=== PATIENT | female | born 1960 | race Caucasian/White ===

== ENCOUNTER 2024-01-15 16:33 | Emergency (ER) | payer MEDICARE, OTHER, SELFPAY ==
[2024-01-15 16:35] VITALS: BP 129/59; BMI 42.6
[2024-01-15 17:36] LABS: COVID-19 Antigen Negative (Negative)
[2024-01-15 17:36] LABS: % Basophils 0.1 % (0-2); % Eosinophils 0.1 % (0-6); % Immature Granulocytes 0.9 % (0-0.5); % Lymphocytes 5.4 % (20.5-51.1); % Monocytes 2.9 % (1.7-9.3); % Neutrophils 90.6 % (42.2-75.2); Absolute Immature Granulocytes 0.1 10^3/uL (0-0.05); Absolute Lymphocytes 0.8 10^3/uL (1.2-3.4); Absolute Monocytes 0.4 10^3/uL (0.1-0.6); Absolute Neutrophils 13.7 10^3/uL (1.4-6.5); Hematocrit 37.3 % (37.0-47.0); Hemoglobin 11.9 g/dL (12.0-16.0); Mean Corp Hgb Conc. 31.9 g/dL (33.0-37.0); Mean Corpuscular Hgb 27.4 pg (27.0-31.0); Mean Corpuscular Volume 85.7 fL (81.0-99.0); Mean Platelet Volume 10.1 fL (7.4-10.4); Nucleated Red Blood Cells % 0 %; Platelet Count 152 10^3/uL (130-400); Red Blood Cell Count 4.35 10^6/uL (4.20-5.40); Red Cell Dist. Width 16.5 % (11.5-14.5); White Blood Cell Count 15.1 10^3/uL (4.8-10.8)
[2024-01-15 17:54] VITALS: BP 104/65
[2024-01-15 18:00] VITALS: BP 94/64
[2024-01-15 18:50] LABS: ALT (SGPT) 28 U/L (0-35); AST (SGOT) 25 U/L (14-36); Albumin 3.5 g/dl (3.5-5.0); Alkaline Phosphatase 70 U/L (38-126); Blood Urea Nitrogen 21 mg/dl (7-17); Calcium 9.4 mg/dl (8.4-10.2); Carbon Dioxide 32 mmol/L (22-30); Chloride 102 mmol/L (98-107); Estimated Creatinine Clearance 74 ml/min; Glucose 142 mg/dl (70-99); Lipase 175 U/L (23-300); Sodium 140 mmol/L (135-145); Total Bilirubin 1.2 mg/dl (0.2-1.3); eGFR > 60.00
[2024-01-15 19:00] VITALS: BP 91/55
[2024-01-15 19:02] LABS: NT-proBNP 3520 pg/ml; Troponin I 0.031 ng/ml
--- NOTE | 2024-01-15 19:17 | ED.GENMED ---
History of Present Illness
General
Chief Complaint: Breathing Problem
Source: patient and spouse
Exam Limitations: none
Time Seen by Provider: 01/15/24 17:31
Nursing documentation reviewed up to this point in time: agreed with
Travel History
Have you had any contact with someone who has COVID-19?: No
Do you have any symptoms of coronavirus? Fever > 100 degrees, chills, cough, shortness of breath, sore throat, loss of taste or smell, muscle aches, or headache?: No
History of Present Illness
History of Present Illness:
63-year-old female with past medical history of lung transplant 2021 at [facility] on the right side, heart disease atrial fibrillation presenting to the emergency department today with concerns of worsening shortness of breath increased oxygen
requirement chest tightness from her nursing facility. Was recently at [facility] a week ago and was discharged. She claims that her pulse ox significant is worse with ambulation as well. Denies specific fevers.
Past History
Past History
ED Past Medical History: Renal failure and Other (Mixed connective tissue disease, liver disease lung disease renal disease); Negative Cancer, CHF, CVA or IDDM
Social History
Tobacco: Non-smoker
Alcohol: None
Drug: None
Personal:
Living: with family
Employment: Not employed
Family History
Family History: Hypertension
Review of Systems
Review of Systems
Allergies reviewed?: Yes
All Other Systems: ROS reviewed and negative except as documented in HPI and ROS
Phy Exam
Physical Exam
Physical Exam:
GENERAL: Alert , in no apparent distress
EYE: pupils equal and reactive
NECK: Supple, no significant adenopathy.
ENT: o/p clr, mmm.
CARDIAC: Regular rate and rhythm .
LUNGS: Clear breath sounds bilaterally, no acute respiratory distress, no wheezes/rales/rhonchi
ABDOMEN: Soft, without focal tenderness, no r/g, no cvat
NEUROLOGICAL: Alert and oriented, no focal neuro deficits
SKIN: Warm and dry, skin intact.
MUSCULOSKELETAL: No edema, well perfused.
PSYCH: Normal and appropriate interaction.
Scores
Heart Failure Risk
Heart Failure Risk Score: Not Applicable
Course
Orders/Labs/Results
Orders:
Orders
01/15/24 16:43
EKG [Electrocardiogram (*1)] Urgent
Reason for Study: Shortness of Breath
EKG- Treatment ONCE
01/15/24 16:49
Chest [CR Chest - 2 Views ] Urgent
Comment:
Reason For Exam: shortness of breath, R lung transplant 2021
01/15/24 16:52
COVID-19 Antigen Urgent
Source: Nasal Swab
Influenza A+B Rapid Molecular Urgent
ANA LAURA Source: Nasal Swab
Specimen Description:
01/15/24 17:25
CBC/With Diff [Complete Blood Count/With Diff] Urgent
01/15/24 18:29
Comprehensive Metabolic Panel Urgent
Comment: REDRAW
Lipase Urgent
Comment: REDRAW
NT-proBNP Urgent
Comment: REDRAW
Troponin I Urgent
Comment: REDRAW
01/15/24 18:48
Cefepime HCl [Maxipime] 2,000 mg IV NOW STA
01/15/24 19:19
Vancomycin [Vancocin] 2,000 mg 0.9% Sodium Chloride 500 ml [Nss] 500 ml IV NOW
Abnormal Lab Results
01/15/24 01/15/24
17:25 18:29
WBC 15.1 H 10^3/uL
(4.8-10.8)
Hgb 11.9 L g/dL
(12.0-16.0)
MCHC 31.9 L g/dL
(33.0-37.0)
RDW 16.5 H %
(11.5-14.5)
Abs Immat Gran (auto) 0.1 H 10^3/uL
(0-0.05)
Absolute Neuts (auto) 13.7 H 10^3/uL
(1.4-6.5)
Absolute Lymphs (auto) 0.8 L 10^3/uL
(1.2-3.4)
Immature Gran % 0.9 H %
(0-0.5)
Neutrophils % 90.6 H %
(42.2-75.2)
Lymphocytes % 5.4 L %
(20.5-51.1)
Carbon Dioxide 32 H mmol/L
(22-30)
BUN 21 H mg/dl
(7-17)
Glucose 142 H mg/dl
(70-99)
Total Protein 6.0 L g/dl
(6.3-8.2)
01/15/24 17:25
01/15/24 18:29
Vital Signs
Initial and Last Documented VS:
Initial Vital Signs
Temp Pulse Resp BP Pulse Ox
98.9 F 74 20 129/59 97
01/15/24 16:35 01/15/24 16:35 01/15/24 16:35 01/15/24 16:35 01/15/24 16:35
Last Documented Vital Signs
Temp Pulse Resp BP Pulse Ox
98.9 F 82 21 91/55 97
01/15/24 16:35 01/15/24 19:45 01/15/24 19:45 01/15/24 19:00 01/15/24 19:51
MDM/Problems Addressed
MDM/Problems Addressed:
63-year-old female presenting to the emergency department today with concerns of shortness of breath increased oxygen requirement discomfort. History of lung transplant. X-ray showing increased lung markings on the right side at her transplanted
lung. Concern for pneumonia. Patient started on antibiotics. Case discussed with the lung transplant team at [facility] who would like her to be transferred for further management there. Otherwise stable here.
*Critical Care Note
Total Time (30-74mins, 75-104mins- exclusive of procedures): Not Applicable
ED Attending Note
-
Portions of this chart may have been created with voice recognition software.� Occasional wrong word or��sound alike� substitutions may have occurred due to the inherent limitations of voice recognition software.
Discharge Plan
Departure
Patient Disposition: Acute Care Hospital
Date of Disposition: 01/15/24
Time of Disposition: 20:16
Patient with high blood pressure during this ER visit?: No
Condition: Good
Covid-19: Not Applicable
Discharge Problem:
Pneumonia
Prescriptions:
No Action
omeprazole magnesium [Prilosec OTC] 20 MG tablet,delayed release (DR/EC)
40 mg PO BID
amitriptyline 25 MG tablet
25 mg PO HS
zolpidem 5 MG tablet
10 mg PO HSPRN PRN (Reason: insomnia)
sennosides [senna] 8.6 mg Tablet
8.6 mg PO DAILY
acetaminophen [Tylenol] 325 mg Tablet
650 mg PO Q6HPRN PRN (Reason: mild pain)
atorvastatin [Lipitor] 10 mg Tablet
10 mg PO HS
azithromycin 250 mg Tablet
250 mg PO MOWEFR@0800
Rx Instructions:
For 250 mg dose pack: take 500 mg today (day 1), then 250 mg for 4 days (days 2-5)
ibuprofen 800 mg Tablet
800 mg PO Q8HPRN PRN (Reason: MILD PAIN)
mycophenolate mofetil 250 mg Capsule
1,000 mg PO BID
loperamide 2 mg Tablet
2 mg PO Q6HPRN PRN (Reason: DIARRHEA)
magnesium hydroxide [Milk of Magnesia] 400 mg/5 mL Suspension
2,400 mg PO [id number] PRN (Reason: CONSITAPTION)
bisacodyl [Dulcolax (bisacodyl)] 10 mg Suppository
10 mg TN DAILYPRN PRN (Reason: IF NO BM AFTR MOM)
ferrous sulfate 325 mg (65 mg iron) Tablet
325 mg PO Q48H
lidocaine 5 % Adhesive Patch,Medicated
2 patch TOPICAL DAILY
budesonide 0.5 mg/2 mL Suspension For Nebulization
0.5 mg INHALATION R BID
bumetanide [Bumex] 1 mg Tablet
1 mg PO DAILY
hydroxyzine HCl 25 mg Tablet
25 mg PO Q8HPRN PRN (Reason: ANIXETY)
atovaquone 750 mg/5 mL Suspension
750 mg PO BID
tacrolimus [Prograf] 0.5 mg Capsule
1.5 mg PO DAILY
metoprolol tartrate 25 mg Tablet
25 mg PO BID
calcium carbonate-vitamin D3 [Calcium 500 + D] 500 mg-10 mcg (400 unit) Tablet,Chewable
1 tab PO BID
arformoterol 15 mcg/2 mL Solution For Nebulization
15 mcg INHALATION R BID
insulin glargine [Lantus Solostar U-100 Insulin] 100 unit/mL (3 mL) Insulin Pen
5 unit SC HS
oxycodone 10 mg Tablet
10 mg PO [id number] PRN (Reason: SEVERE PAIN)
Eliquis 5 mg Tablet
5 mg PO BID
Jardiance 10 mg Tablet
10 mg PO DAILY
letermovir 480 mg Tablet
480 mg PO DAILY
Yupelri 175 mcg/3 mL Solution For Nebulization
175 mcg INHALATION R DAILY
Trulicity 3 mg/0.5 mL Pen Injector
3 mg SC QWEEK
magnesium chloride 64 mg magnesium Tablet
64 mg PO DAILY
prednisone 10 MG tablet
10 mg PO DAILY
Referrals:
Zacarias Tolbert DO [Family Provider] -
Hospital Transfer
Other hospital: [facility]
I certify that the patient requires transfer: No
Discussed case with accepting physician: Farrah
Reason for transfer: medical necessity, availability of service and specialties available
Interventions
Interventions:
*Risk Screen - Suicide Last Done: 01/15/24 16:35
*General Assessment Last Done: 01/15/24 16:35
*Neglect/Abuse Screening Last Done: 01/15/24 16:35
ED- Fall Risk Assessment Last Done: 01/15/24 16:55
*ED COVID-19 Vaccine History Last Done: 01/15/24 16:35
ED- Cardiac Assessment Last Done: 01/15/24 16:55
ED- Pulmonary Assessment Last Done: 01/15/24 16:55
Discharge Date and Time
Print Language: CHINESE
[2024-01-15] MEDS: MAXIPIME 2000 MG IV (19:22)
[2024-01-15] MEDS: VANCOCIN 540 MG IV (19:52)
[2024-01-15 20:00] VITALS: BP 106/52
--- NOTE | 2024-01-15 20:33 | EDRN ---
Report called to Nicole Hester RN. All questions answered, p/u time approx 2200 by SUMAN.
[2024-01-15] MEDS: ROXICODONE 10 MG PO (21:29)
[2024-01-15 22:12] VITALS: BP 132/75
== END 2024-01-15 22:48 | disposition short-term general hospital (02) ==
LOC: EMR 16:33
PROVIDERS: EMERGENCY PHYSICIAN Emergency Medicine; FAMILY PHYSICIAN Family Medicine
DX: J18.9 Pneumonia, unspecified organism (principal); Z94.2 Lung transplant status; I48.91 Unspecified atrial fibrillation
CPT/HCPCS: 99285; 96374; 96375; 71046; 80053; 83690; 83880; 84484; 85025; 87502; 87811; 93005